=== PATIENT | male | born 1950 | race Caucasian/White ===

== ENCOUNTER → 2019-01-31 12:34 | Outpatient (CLI) | payer MEDICARE, OTHER, SELFPAY ==
--- NOTE | 2019-01-31 | DI.MRI.S_ITS ---
PROCEDURE: MR SHOULDER RT WO/W CON INDICATIONS: Pain in right shoulder TECHNIQUE: Noncontrast oblique coronal T1 spin echo and T2 fast spin echo with fat saturation, oblique sagittal T1 spin echo and T2 fast spin echo with fat saturation, axial T1 spin echo and T2 fast spin echo with fat saturation through the shoulder. Post-contrast oblique coronal, oblique sagittal, and axial T1 spin echo with fat saturation through the shoulder. COMPARISON: None. FINDINGS: Image quality: Excellent. Rotator cuff: Supraspinatus tendinopathy and thickening is present, with interstitial signal changes extending to the musculotendinous junction. There is low-grade bursal surface fraying, as well as partial thickness articular sided tear involving the critical zone and footprint. No full-thickness tear seen. The infraspinatus and teres minor appear intact. Subscapularis tendon appears mildly thickened in keeping with low-grade tendinopathy otherwise intact. No atrophy of the rotator cuff musculature. Bones and bursae: No suspicious bone marrow enhancement. No bone marrow contusions or fractures. There is glenohumeral joint degeneration, mild to moderate. Moderate hypertrophic acromioclavicular joint degeneration. The acromion demonstrates conventional anatomy, without an os acromiale. Mild to moderate subacromial/subdeltoid bursal fluid is seen.. Capsule and soft tissues: No abnormal enhancement is seen. Circumferential ill-defined extensive tear of the labrum which is likely chronic/degenerative. There is associated chronic osseous degenerative changes in the adjacent glenoid with circumferential appearance. The posterior subluxation of the humeral head relative to the glenoid. Possible small chronic-appearing Hill-Sachs fracture deformity Coracohumeral ligament appears mildly thickened otherwise intact. There is partial obliteration of subcoracoid fat. The biceps tendon appears abnormal in internal signal suggesting tendinopathy although grossly intact without definite medial subluxation. IMPRESSION: Supraspinatus tendinopathy and thickening, with low-grade bursal surface fraying and partial-thickness articular sided tear. Mild/moderate subacromial subdeltoid bursitis. Subscapularis tendinopathy. Glenohumeral and acromioclavicular joint degeneration as above with associated subchondral cystic change in the glenoid. Circumferential probably chronic/degenerative labral tear. Intra-articular long head biceps tendinopathy. Dictated by: Cholo Lizarrgaa M.D. on 02/01/2019 at 8:05 Approved by: Cholo Lizarraga M.D. on 02/01/2019 at 8:13
== END ==
PROVIDERS: Visit Provider Internal Medicine
DX: M25.511 Pain in right shoulder (principal); M75.111 Incomplete rotator cuff tear or rupture of right shoulder, not specified as traumatic; M75.51 Bursitis of right shoulder; M19.011 Primary osteoarthritis, right shoulder; S43.491A Other sprain of right shoulder joint, initial encounter
CPT/HCPCS: 73223; A9579

== ENCOUNTER 2020-04-28 18:54 | Emergency (ER) | payer MEDICARE, OTHER, SELFPAY ==
[2020-04-28] VITALS (16 sets, daily range): BP systolic 152–182; BP diastolic 66–87; PULSE 63–76; RESP 16–24; TEMP 37.3; O2SAT 93–100; BMI 33.1
[2020-04-28 19:43] LABS: Add Manual Diff / Slide Review NO; Basophils Absolute Auto 0 /uL (0-100); Basophils Percent Auto 0.3 % (0-2); Eosinophils Absolute Auto 100 /uL (0-450); Eosinophils Percent Auto 1.1 % (2-4); Hematocrit 40.8 % (41-53); Hemoglobin 13.9 g/dL (13.5-17.5); Lymphocytes Absolute Auto 1500 /uL (1100-4500); Mean Corpuscular HGB Conc 34.1 % (30-36); Mean Corpuscular Hemoglobin 32.3 PG (26-34); Mean Corpuscular Volume 94.8 fL (80-100); Monocytes Absolute Auto 1400 /uL (0-900); Neutrophils Absolute Auto 6000 /uL (1500-7000); Neutrophils Percent Auto 66.6 % (50-75); Platelet Count 225 X10^3/uL (150-400)
[2020-04-28 19:54] LABS: Creatine Kinase 62 U/L (55-170)
[2020-04-28 20:07] LABS: Troponin I < 0.012 ng/mL (0.01-0.034)
[2020-04-28 20:18] LABS: Alanine Aminotransferase 29 IU/L (<50); Albumin 4.1 g/dL (3.5-5.0); Albumin Globulin Ratio 1.5 (1.0-2.8); Alkaline Phosphatase 101 U/L (38-126); Aspartate Aminotransferase 36 IU/L (17-59); Bilirubin Total 0.9 mg/dL (0.2-1.3); Blood Urea Nitrogen 22 mg/dL (9-20); Calcium 9.5 mg/dL (8.4-10.2); Carbon Dioxide 24 mmol/L (22-32); Chloride 105 mmol/L (98-107); Estimated Glomerular Filt Rate 36.7 mL/min (>60); Globulin 2.8 g/dL (1.7-4.1); Glucose 84 mg/dL (80-110); HEMOLYSIS 22 (0-50); Lipase 83 U/L (23-300); Potassium 3.9 mmol/L (3.4-5.1); Sodium 136 mmol/L (137-145); Total Protein 6.9 g/dL (6.3-8.2)
--- NOTE | 2020-04-28 20:33 | DI.CT.S_ITS ---
PROCEDURE: CT KIDNEY URETER BLADDER (KUB) INDICATIONS: right back pain, vomiting, decreased kidney function TECHNIQUE: Noncontrast 5 mm thick sections acquired from the diaphragms to the symphysis. 5 mm thick coronal and sagittal reformats were then performed. For radiation dose reduction, the following was used: automated exposure control, adjustment of mA and/or kV according to patient size. COMPARISON: [facility], CT, ABDOMEN/PELVIS WITH CONTRAST, 07/12/2016, 9:50. FINDINGS: Image quality: Excellent. Lung bases: Lung bases are clear. Heart size is normal. Urinary system: Both kidneys are normal in size. No kidney stones. No left-sided hydronephrosis or perinephric fat stranding. Mild right-sided hydronephrosis and the right ureters appears slightly dilated throughout it is expected course to the bladder margin where a 1.5 mm calculus is seen (series 2, image 87).. Bladder wall thickness is normal; no calcified bladder stones. Other solid organs: Liver is normal in size. Gallbladder appears normal. Pancreas is normal in contours. Spleen is normal in size. No adrenal nodules. Peritoneum and bowel: Unenhanced bowel loops demonstrate normal wall thickness and caliber. No free fluid or air. Nodes and vessels: No retroperitoneal or mesenteric adenopathy by size criteria. Aorta and inferior vena cava are normal in caliber. Abdominal wall: There is a stable appearing ventral hernia in the periumbilical area, through a wide midline rectus sheath fascial defect, measuring up to 9.6 cm. No evidence of strangulation or incarceration of the small bowel loops extending into this area is found.. Pelvis: No free pelvic fluid. No inguinal hernias or adenopathy. Bones: No suspicious bony lesions. No vertebral body compression fractures. IMPRESSION: There is a 1.5 mm calculus within the far distal aspect of the right ureter, with mild adjacent retroperitoneal edema and mild associated right-sided hydronephrosis. A stone of this size will generally pass without urologic intervention into the bladder lumen. Incidental note is again made of a chronic midline periumbilical herniation, containing small bowel loops showing no evidence of incarceration or strangulation. The peritoneal body wall defect allowing herniation measures up to 9.6 cm open (series 2, image 62). Dictated by: Michele Lo M.D. on 04/28/2020 at 21:18 Approved by: Michele Lo M.D. on 04/28/2020 at 21:24
--- NOTE | 2020-04-28 20:40 | ED_ITS ---
HPI - Abdominal Pain <ELVIS Lema - Last Filed: 04/28/20 23:21> General Chief Complaint: Abdominal Pain Stated Complaint: vomiting, back pain, some SOB Time Seen by Provider: 04/28/20 19:07 Source: patient Mode of arrival: Family Vehicle Limitations: no limitations History of Present Illness HPI narrative: This is a 70-year-old male, a remote former smoker, with medical history of asthma, kidney stone, umbilical hernia repair presents to ED with chief complain of low abdominal pain that started on after eating garbage and had vomited twice. Patient described as having a knot in his lower abdomen. Then later on the pain had radiated to his back and reports has been having right flank/low back pain since then. Patient reports he had eaten lightly on Wednesday. He had 2 normal bowel movements yesterday without blood or diarrhea. Patient noticed temperature went up to 100 F earlier today. Patient reports chills. He denies urinary symptoms such as urgency, frequency, dysuria, or hematuria but occasional hesitancy. The patient also reports some chest tightness similar to asthma symptoms since yesterday morning at 7:00 a.m.. Patient reports chest tightness improves after he uses albuterol. However, noticed slightly increased in breathing difficulty and feels like not able to take full breaths with increase in activity. Patient denies chest pain, palpitation, sore throat, cough, headache, vision change, fainting episodes. Patient denies having abnormal EKGs or kidney function test in the past but reports used to have abnormal liver function test. He had gotten liver biopsy awhile ago which was normal. Patient denies recent travel, calf pain, contact with known Covid positive person. Patient reports he is actually feeling improved at this time as compared to and denies nausea and has a mild discomfort. Related Data Home Medications Medication Instructions Recorded Confirmed albuterol sulfate 04/28/20 Previous Rx's Medication Instructions Recorded tamsulosin [Flomax] 0.4 mg PO QDAY #7 cap 07/12/16 tamsulosin [Flomax] 0.4 mg PO DAILY #7 cap 04/28/20 Allergies Allergy/AdvReac Type Severity Reaction Status Date / Time No Known Drug Allergies Allergy Verified 04/28/20 19:10 Review of Systems <ELVIS Lema - Last Filed: 04/28/20 23:21> Review of Systems Narrative: General: See HPI HEENT: Denies sinus pain, ear pain, sore throat, difficulty swallowing, dizziness. Respiratory: Denies dyspnea, (+) mild short of breath with exertion, cough, whe ezing, hemoptysis, sputum. Cardiovascular: Denies chest pain, (+) chest tightness, palpitations, orthopnea, edema. Gastrointestinal: See HPI : Denies dysuria, frequency, incontinence, hematuria, urinary retention. Musculoskeletal: Denies weakness, joint pain or bony pain, (+) right low back p ain. Skin: Denies rash, skin lesions, or other. Neurologic: Denies weakness, headache, numbness, change in speech, confusion, seizures, incoordination. Psychiatric: No concerning psychosocial issues. 12-point review of systems is negative except for those stated above. Patient History <ELVIS Lema - Last Filed: 04/28/20 23:21> Medical History Abnormal liver function tests (Acute) Surgical History H/O umbilical hernia repair (Acute) Social History Smoking Status: Former smoker Smoking Status: Former smoker alcohol intake frequency: a few times a month Substance Use Type: does not use Exam <ELVIS Lema - Last Filed: 04/28/20 23:21> Narrative Exam Narrative: GEN: Alert, oriented x 3, well appearing and nourished, and in no acute distress. Head: Normal cephalic, atraumatic. No scalp or temporal tenderness, palpable mass or rash. EYES: Pupils are equal, round, and reactive to light and accommodation. Extraocular muscles are intact bilaterally. There is no subconjunctival hemorrhage, exudate and sclera non-icteric. ENT: Hearing grossly intact. Uses hearing aid. Nose without bleeding, purulent discharge or deviation. Facial sinuses nontender to palpate. Mucous membrane moist, no mucosal lesion. Throat without erythema, tonsillar hypertrophy or exudate. Uvula in midline, airway patent. Neck: Trachea in midline. No JVD, non-tender without lymphadenopathy. No masses or thyroid megaly. Supple, non-tender and no meningeal signs. CARDIAC: Normal regular rate and rhythm without murmurs, gallops, or rubs. No chest wall tenderness. No peripheral edema, cyanosis or pallor. Capillary refill is less than 2 seconds. RESPIRATORY: Lungs are clear to auscultate bilaterally. No cough, wheezes, rales, or rhonchi. No stridor, respiratory distress, increase work of breathing, or accessary muscle used. ABD: Abdomen soft, nontender and non-distended. No guarding or rebound t enderness to palpate. Bowel sounds are normal in all 4 quadrants. There is no palpable masses or organomegaly. EXT: Full painless ROM of all extremities with no loss of sensation, strength, effusion or edema. SKIN: Warm, dry, normal color for patient. No erythema, lesions or rash over visible areas. BACK: No deformity or crepitance. Right flank tenderness to palpate. No rashes noted. NEUROLOGICAL: Alert and oriented to place, time and person. Sensation and motor function intact bilaterally. No facial droops, dysphasia. PSYCHIATRIC: Good judgement and reason, without hallucinations, abnormal affect or abnormal behaviors during the examination. Patient is not suicidal. Initial Vital Signs Initial Vital Signs: Vital Signs Temperature 99.2 F 04/28/20 19:02 Pulse Rate 66 04/28/20 19:02 Respiratory Rate 20 04/28/20 19:02 Blood Pressure 178/87 H 04/28/20 19:02 Pulse Oximetry 100 04/28/20 19:02 <Jaiden Basilio DO - Last Filed: 04/29/20 06:40> Initial Vital Signs Initial Vital Signs: Vital Signs Temperature 99.2 F 04/28/20 19:02 Pulse Rate 66 04/28/20 19:02 Respiratory Rate 04/28/20 19:02 Blood Pressure 178/87 H 04/28/20 19:02 Pulse Oximetry 100 04/28/20 19:02 Scores <ELVIS Lema - Last Filed: 04/28/20 23:21> GCS Handy coma scale eye opening: Spontaneous Butterfield coma scale verbal response: Orientated Handy coma scale motor response: Obey commands Butterfield coma scale total score: 15 qSOFA Altered Mental Status (GCS <15): No Respiratory rate greater than/equal to 22: No Systolic blood pressure less than or equal to 100: No qSOFA Total: 0 0-1 Not High Risk 1-3 High risk Course <Jordan GonzalezCarolynHarleyELVIS odonnell - Last Filed: 04/28/20 23:21> Orders Ordered: Discontinued Medications Hydrocodone Bitart/Acetaminophen (Vicodin 5/325 Prepack) 1 bottle MISC SEEINSTR ONE Stop: 04/28/20 23:14 Last Admin: 04/28/20 23:23 Dose: 1 bottle Documented by: PHILIPPE Sodium Chloride (Normal Saline 0.9%) 500 mls @ 1,000 mls/hr IV BOLUS ONE Stop: 04/28/20 21:04 Last Infusion: 04/28/20 22:08 Dose: 0 mls/hr Documented by: Admin: 04/28/20 21:01 Dose: 1,000 mls/hr Documented by: PHILIPPE Ondansetron HCl (Zofran Odt Prepack) 1 bottle MISC SEEINSTR ONE Stop: 04/28/20 23:14 Last Admin: 04/28/20 23:23 Dose: 1 bottle Documented by: PHILIPPE Tamsulosin HCl (Flomax) 0.4 mg PO NOW ONE Stop: 04/28/20 23:14 Last Admin: 04/28/20 23:23 Dose: 0.4 mg Documented by: PHILIPPE Consultations Consultation #1: DR. Sarmeinto at (urolgoist) with CT finding and acute kidney injury. Dr. Sarmiento informed that the patient is not a surgical candidate. Patient may have other etiology for decreased kidney function including dehy dration, urinary retention and ect. Time: 21:50 Consultation #2: Consulted the hospitalist YAYA Sullivan for admission for observation but it was recommended with outpatient therapy with increase hydration and recheck lab test for kidney function test since patient is able to tolerate fluids, no signs of infection or significant urinary obstruction. Time: 23:00 Vital Signs Vital signs: Vital Signs - 8 hr 04/28/20 23:00 04/28/20 23:01 Pulse Rate 65 67 Respiratory Rate 24 18 Blood Pressure 158/72 H Pulse Oximetry 96 96 <Jaiden Basilio DO - Last Filed: 04/29/20 06:40> Orders Ordered: Discontinued Medications Hydrocodone Bitart/Acetaminophen (Vicodin 5/325 Prepack) 1 bottle MISC SEEINSTR ONE Stop: 04/28/20 23:14 Last Admin: 04/28/20 23:23 Dose: 1 bottle Documented by: PHILIPPE Sodium Chloride (Normal Saline 0.9%) 500 mls @ 1,000 mls/hr IV BOLUS ONE Stop: 04/28/20 21:04 Last Infusion: 04/28/20 22:08 Dose: 0 mls/hr Documented by: Admin: 04/28/20 21:01 Dose: 1,000 mls/hr Documented by: PHILIPPE Ondansetron HCl (Zofran Odt Prepack) 1 bottle MISC SEEINSTR ONE Stop: 04/28/20 23:14 Last Admin: 04/28/20 23:23 Dose: 1 bottle Documented by: PHILIPPE Tamsulosin HCl (Flomax) 0.4 mg PO NOW ONE Stop: 04/28/20 23:14 Last Admin: 04/28/20 23:23 Dose: 0.4 mg Documented by: PHILIPPE Vital Signs Vital signs: Vital Signs - 8 hr 04/28/20 23:00 04/28/20 23:01 Pulse Rate 65 67 Respiratory Rate 24 18 Blood Pressure 158/72 H Pulse Oximetry 96 96 MDM - Abdominal Pain <ELVIS Lema - Last Filed: 04/28/20 23:21> Differential Diagnosis Differential diagnosis: Likely abdominal pain, calculus of kidney, diverticulitis, small bowel obstruction and other (Renal obstruction, ) Medical Records Attestation: I reviewed the patient's medical records. Lab Data Attestation: I reviewed the patient's lab results. Result diagrams: 04/28/20 19:33 04/28/20 19:33 Labs: Lab Results 04/28/20 04/28/20 04/28/20 Range/Units 19:33 19:33 19:33 WBC 9.0 (4.5-11.0) X10^3/uL RBC 4.30 L (4.5-5.9) X10^6/uL Hgb 13.9 (13.5-17.5) g/dL Hct 40.8 L (41-53) % MCV 94.8 (80-100) fL MCH 32.3 (26-34) PG MCHC 34.1 (30-36) % RDW 14.0 (11.6-14.8) % Plt Count 225 (150-400) X10^3/uL Neut % (Auto) 66.6 (50-75) % Lymph % (Auto) 17.0 L (25-40) % [place]ander % (Auto) 15.0 H (3-14) % Eos % (Auto) 1.1 L (2-4) % Baso % (Auto) 0.3 (0-2) % Neut # (Auto) 6000 (7417-3038) /uL Lymph # (Auto) 1500 (0377-1360) /uL Lander # (Auto) 1400 H (0-900) /uL Eos # (Auto) 100 (0-450) /uL Baso # (Auto) 0 (0-100) /uL Sodium 136 L (137-145) mmol/L Potassium 3.9 (3.4-5.1) mmol/L Chloride 105 (98-107) mmol/L Carbon Dioxide 24 (22-32) mmol/L BUN 22 H (9-20) mg/dL Creatinine 1.83 H (0.66-1.25) mg/dL Estimated GFR 36.7 L (>60) mL/min BUN/Creatinine Ratio 12.0 (6-22) Glucose 84 (80-110) mg/dL Calcium 9.5 (8.4-10.2) mg/dL Total Bilirubin 0.9 (0.2-1.3) mg/dL AST 36 (17-59) IU/L ALT 29 (<50) IU/L Alkaline Phosphatase 101 (38-126) U/L Total Creatine Kinase 62 (55-170) U/L CK-MB (CK-2) TNP CK-MB (CK-2) Rel Index TNP Troponin I < 0.012 (0.01-0.034) ng/mL NT-Pro-B Natriuret Pep (<125) pg/mL Total Protein 6.9 (6.3-8.2) g/dL Albumin 4.1 (3.5-5.0) g/dL Globulin 2.8 (1.7-4.1) g/dL Albumin/Globulin Ratio 1.5 (1.0-2.8) Lipase 83 (23-300) U/L COVID-19 PCR (Negative) 04/28/20 04/28/20 Range/Units 19:33 22:30 WBC (4.5-11.0) X10^3/uL RBC (4.5-5.9) X10^6/uL Hgb (13.5-17.5) g/dL Hct (41-53) % MCV (80-100) fL MCH (26-34) PG MCHC (30-36) % RDW (11.6-14.8) % Plt Count (150-400) X10^3/uL Neut % (Auto) (50-75) % Lymph % (Auto) (25-40) % Lander % (Auto) (3-14) % Eos % (Auto) (2-4) % Baso % (Auto) (0-2) % Neut # (Auto) (6034-8827) /uL Lymph # (Auto) (6683-8826) /uL Lander # (Auto) (0-900) /uL Eos # (Auto) (0-450) /uL Baso # (Auto) (0-100) /uL Sodium (137-145) mmol/L Potassium (3.4-5.1) mmol/L Chloride (98-107) mmol/L Carbon Dioxide (22-32) mmol/L BUN (9-20) mg/dL Creatinine (0.66-1.25) mg/dL Estimated GFR (>60) mL/min BUN/Creatinine Ratio (6-22) Glucose (80-110) mg/dL Calcium (8.4-10.2) mg/dL Total Bilirubin (0.2-1.3) mg/dL AST (17-59) IU/L ALT (<50) IU/L Alkaline Phosphatase (38-126) U/L Total Creatine Kinase (55-170) U/L CK-MB (CK-2) CK-MB (CK-2) Rel Index Troponin I (0.01-0.034) ng/mL NT-Pro-B Natriuret Pep 234 H (<125) pg/mL Total Protein (6.3-8.2) g/dL Albumin (3.5-5.0) g/dL Globulin (1.7-4.1) g/dL Albumin/Globulin Ratio (1.0-2.8) Lipase (23-300) U/L COVID-19 PCR Negative (Negative) Point of care testing: Urine Dip Bedside Urine Glucose Negative Bedside Urine Bilirubin - Negative Bedside Urine Ketone - Negative Urine Specific [place] 1.020 Bedside Urine Occult Blood - Negative Bedside Urine pH 6.0 Bedside Urine Protein - Negative Bedside Urine Urobilinogen +/- 1mg Bedside Urine Nitrite - Negative Bedside Urine Leukocytes - Negative Esterase Imaging Data Chest x-ray: Radiologist's Impression: Bala Mccurdy Markjayme 70 M [address] [address] XRay Report Signed Patient: Bala MccurdyMR#: [id number] : 1950cct:[id number] Age/Sex: 70 / MDate of Service: 04/28/20 Loc: ED Accession Number: [id number] Procedure: XR chest 1V Ordering Provider: Jordan Mccollum PROCEDURE: XR CHEST 1V INDICATIONS: chest tightness TECHNIQUE: One view of the chest was acquired. COMPARISON: None. FINDINGS: Surgical changes and devices: None. Lungs and pleura: Lungs are difficult to accurately assess due to reduced inspiratory volume. No definite pneumonia found. No sign of cardiomegaly or CHF.. No pleural effusions or pneumothorax. Mediastinum: Mediastinal contours appear normal. Heart size is normal. Bones and chest wall: No suspicious bony lesions. Overlying soft tissues a ppear unremarkable. IMPRESSION: Reduced inspiratory volume, no acute disease. Dictated by: Michele Lo M.D. on 04/28/2020 at 21:30 Approved by: Michele Lo M.D. on 04/28/2020 at 21:30 CT-KUB: Radiologist's Impression: [address] [address] [address] Scan Report Signed Patient: Bala Mccurdy#: [id number] : 9Acct:[id number] Age/Sex: 70 / MDate of Service: 04/28/20 Loc: ED Accession Number: [id number] Procedure: CT kidney ureter bladder (KUB) Ordering Provider: Jordan Mccollum PROCEDURE: CT KIDNEY URETER BLADDER (KUB) INDICATIONS: right back pain, vomiting, decreased kidney function TECHNIQUE: Noncontrast 5 mm thick sections acquired from the diaphragms to the symphysis. 5 mm thick coronal and sagittal reformats were then performed. For radiation dose reduction, the following was used: automated exposure control, adjustment of mA and/or kV according to patient size. COMPARISON: [facility], CT, ABDOMEN/PELVIS WITH CONTRAST, 07/12/2016, 9:50. FINDINGS: Image quality: Excellent. Lung bases: Lung bases are clear. Heart size is normal. Urinary system: Both kidneys are normal in size. No kidney stones. No left- sided hydronephrosis or perinephric fat stranding. Mild right-sided hydronephrosis and the right ureters appears slightly dilated throughout it is expected course to the bladder margin where a 1.5 mm calculus is seen (series 2, image 87).. Bladder wall thickness is normal; no calcified bladder stones. Other solid organs: Liver is normal in size. Gallbladder appears normal. Pancreas is normal in contours. Spleen is normal in size. No adrenal nodules. Peritoneum and bowel: Unenhanced bowel loops demonstrate normal wall thickness and caliber. No free fluid or air. Nodes and vessels: No retroperitoneal or mesenteric adenopathy by size criteria. Aorta and inferior vena cava are normal in caliber. Abdominal wall: There is a stable appearing ventral hernia in the periumbilical area, through a wide midline rectus sheath fascial defect, measuring up to 9.6 cm. No evidence of strangulation or incarceration of the small bowel loops extending into this area is found.. Pelvis: No free pelvic fluid. No inguinal hernias or adenopathy. Bones: No suspicious bony lesions. No vertebral body compression fractures. IMPRESSION: There is a 1.5 mm calculus within the far distal aspect of the right ureter, with mild adjacent retroperitoneal edema and mild associated right-sided hydronephrosis. A stone of this size will generally pass without urologic intervention into the bladder lumen. Incidental note is again made of a chronic midline periumbilical herniation, containing small bowel loops showing no evidence of incarceration or strangulation. The peritoneal body wall defect allowing herniation measures up to 9.6 cm open (series 2, image 62). Dictated by: Michele Lo M.D. on 04/28/2020 at 21:18 Approved by: Michele Lo M.D. on 04/28/2020 at 21:24 ECG Data Attestation: I personally reviewed and interpreted this ECG as follows: Prior ECG tracings: not available for review Interpretation: Sinus rhythm with sinus arrhythmia rate at 67. Right bundle-branch block. AR initerval 179, QRS duration 153, QT/QTC 410/426. NO acute ST elevateion MDM Narrative Medical decision making narrative: This is a 70 year male who presents to ED with abdominal pain with nausea and vomiting times twice which started on . Patient reports pain had radiated to his back and has been remaining in right flank since 3 days ago. Patient had T-max of 100? today with some chills. He also reports some chest tightness since yesterday morning which improved with using albuterol but has slightly increased short of breath with exertion. Patient denies history of abnormal EKG in the past but we do not have prior EKGs in our EHR. Today's EKG shows sinus rhythm with sinus arrhythmia with right bundle branch block rate at [address] changes. pro BNP is 234. Chest xray of cardiomegaly or other acute findings. Cardiac enzymes were negative. CBC shows no acute findings or elevated neutrophils. Mildly decreased sodium level of 136 today. Elevated BUN of 2 with decreased creatinine of 1.83 an estimated GFR of 36.7. Patient denies history of decreased kidney function. We have last chemistry test in June 2016 which shows normal BUN (16) , creatinine (1.2). CT-KUB shows 1.5 mm stone was seen within the far distal aspect of right ureter with mild as send retroperitoneal edema and mild associated right-sided hydronephrosis. Also incidental finding of chronic midline periumbilical herniation without S evidence of incarceration or strangulation. Dr. Sarmiento ( Urolgoist) has been consulted and was informed that patient is not surgical candidate with this size of stone. Patient should be able to p assed stone without difficulty. However, patient's kidney function test has decreased for the size of stone patient is showing per CT test. Either patient might of had passed larger size stone in the past or patient has chronic urinary tension or other etiologies. The patient reports occasional urinary hesitancy but is able to void without difficulty when he waits while standing position. Patient does not see urologist specialist at this time. Bladder scanner was done and show about 270 ml of urine. The patient reports sensation of bladder fullness and was able to void about to 275 mL of clear yellow urine immediately after. It does not appears to be patient has urinary retention this time. Discussed with hospitalist CABIN SUPERVISOR Nate for observation admission for monitoring kidney function test with gentle IV hydration but it was recommended outpatient therapy since patient is able to tolerate fluids, there is no signs of infection big obstruction. I also spoke with the patient [facility] provider CABIN SUPERVISOR Leatha [facility] at [facility] with the findings over the phone and I was informed that she will follow-up with repeat kidney function test and new abnormal EKG finding of right bundle-branch block as outpatient. Patient was medicated with Flomax before leaving ED and with 7 day course of remaining prescription. Patient provided with prepack of [place] and Zofran as needed use for severe pain or nausea and vomiting. Patient advised to hydrate adequately to help with passing ureter stone. Return precautions were discussed with the patient and patient and spouse verbalized understanding and in agreement with treatment plan. <Jaiden Basilio, DO - Last Filed: 04/29/20 06:40> Lab Data Labs: Lab Results 04/28/20 04/28/20 04/28/20 Range/Units 19:33 19:33 19:33 WBC 9.0 (4.5-11.0) X10^3/uL RBC 4.30 L (4.5-5.9) X10^6/uL Hgb 13.9 (13.5-17.5) g/dL Hct 40.8 L (41-53) % MCV 94.8 (80-100) fL MCH 32.3 (26-34) PG MCHC 34.1 (30-36) % RDW 14.0 (11.6-14.8) % Plt Count 225 (150-400) X10^3/uL Neut % (Auto) 66.6 (50-75) % Lymph % (Auto) 17.0 L (25-40) % Lander % (Auto) 15.0 H (3-14) % Eos % (Auto) 1.1 L (2-4) % Baso % (Auto) 0.3 (0-2) % Neut # (Auto) 6000 (7119-9446) /uL Lymph # (Auto) 1500 (9943-2621) /uL Lander # (Auto) 1400 H (0-900) /uL Eos # (Auto) 100 (0-450) /uL Baso # (Auto) 0 (0-100) /uL Sodium 136 L (137-145) mmol/L Potassium 3.9 (3.4-5.1) mmol/L Chloride 105 (98-107) mmol/L Carbon Dioxide 24 (22-32) mmol/L BUN 22 H (9-20) mg/dL Creatinine 1.83 H (0.66-1.25) mg/dL Estimated GFR 36.7 L (>60) mL/min BUN/Creatinine Ratio 12.0 (6-22) Glucose 84 (80-110) mg/dL Calcium 9.5 (8.4-10.2) mg/dL Total Bilirubin 0.9 (0.2-1.3) mg/dL AST 36 (17-59) IU/L ALT 29 (<50) IU/L Alkaline Phosphatase 101 (38-126) U/L Total Creatine Kinase 62 (55-170) U/L CK-MB (CK-2) TNP CK-MB (CK-2) Rel Index TNP Troponin I < 0.012 (0.01-0.034) ng/mL NT-Pro-B Natriuret Pep (<125) pg/mL Total Protein 6.9 (6.3-8.2) g/dL Albumin 4.1 (3.5-5.0) g/dL Globulin 2.8 (1.7-4.1) g/dL Albumin/Globulin Ratio 1.5 (1.0-2.8) Lipase 83 (23-300) U/L COVID-19 PCR (Negative) 04/28/20 04/28/20 Range/Units 19:33 22:30 WBC (4.5-11.0) X10^3/uL RBC (4.5-5.9) X10^6/uL Hgb (13.5-17.5) g/dL Hct (41-53) % MCV (80-100) fL MCH (26-34) PG MCHC (30-36) % RDW (11.6-14.8) % Plt Count (150-400) X10^3/uL Neut % (Auto) (50-75) % Lymph % (Auto) (25-40) % Lander % (Auto) (3-14) % Eos % (Auto) (2-4) % Baso % (Auto) (0-2) % Neut # (Auto) (8691-0987) /uL Lymph # (Auto) (8017-5769) /uL Lander # (Auto) (0-900) /uL Eos # (Auto) (0-450) /uL Baso # (Auto) (0-100) /uL Sodium (137-145) mmol/L Potassium (3.4-5.1) mmol/L Chloride (98-107) mmol/L Carbon Dioxide (22-32) mmol/L BUN (9-20) mg/dL Creatinine (0.66-1.25) mg/dL Estimated GFR (>60) mL/min BUN/Creatinine Ratio (6-22) Glucose (80-110) mg/dL Calcium (8.4-10.2) mg/dL Total Bilirubin (0.2-1.3) mg/dL AST (17-59) IU/L ALT (<50) IU/L Alkaline Phosphatase (38-126) U/L Total Creatine Kinase (55-170) U/L CK-MB (CK-2) CK-MB (CK-2) Rel Index Troponin I (0.01-0.034) ng/mL NT-Pro-B Natriuret Pep 234 H (<125) pg/mL Total Protein (6.3-8.2) g/dL Albumin (3.5-5.0) g/dL Globulin (1.7-4.1) g/dL Albumin/Globulin Ratio (1.0-2.8) Lipase (23-300) U/L COVID-19 PCR Negative (Negative) Point of care testing: Urine Dip Bedside Urine Glucose Negative Bedside Urine Bilirubin - Negative Bedside Urine Ketone - Negative Urine Specific [place] 1.020 Bedside Urine Occult Blood - Negative Bedside Urine pH 6.0 Bedside Urine Protein - Negative Bedside Urine Urobilinogen +/- 1mg Bedside Urine Nitrite - Negative Bedside Urine Leukocytes - Negative Esterase Discharge Plan Departure Patient Disposition: Home Clinical Impression: Acute kidney injury, Calculi, ureter, Right bundle branch block Hydronephrosis Qualifiers: Hydronephrosis type: unspecified Qualified Code(s): N13.30 - Unspecified hydronephrosis Discharge Date/Time: 08/02/20 23:33 Instructions: DI for Hydronephrosis-Adult, DI for Acute Kidney Injury Activity Restrictions/Additional Instructions: You have been diagnosed with [ureteral stone and hydronephrosis with acute kidney injury. Also right bundle branch block in EKG. Cardiac enzymes were negative. Chest x-ray without acute findings.]. What to do: *Take your medications as directed. Please take Flomax at night to help with passing stone. Please take provided [place] as needed for severe pain. You can also use provided Zofran as needed for nausea or vomiting. [place] can cause drowsiness so please take precaution such as not driving, drinking alcohol, or operating heavy equipments. Also he can cause constipation so please take precautions. Please increase hydration. Flomax has been transmitted to [facility]. *Follow up with your primary care provider in 2-3 days, call for an appointment. Let them know you were seen in the ED and that we asked you to be seen in follow up. Please follow-up with repeat kidney function test and abnormal EKG of right bundle-branch block. *Return to ED if you have any new, worsening, or concerning symptoms, such as [fever, urinary retention, chest pain, breathing difficulty, unable to tolerate fluids or any acute concerns]. Prescriptions: New tamsulosin [Flomax] 0.4 mg capsule 0.4 mg PO DAILY Qty: 7 RF: 0 No Action tamsulosin [Flomax] 0.4 MG capsule,extended release 24hr 0.4 mg PO QDAY Qty: 7 RF: 0 albuterol sulfate RF: 0 Referrals: Reinier Aguirre MD [Physician] - <Jaiden Basilio DO - Last Filed: 04/29/20 06:40> [place] [facility] I was immediately available in the department for consultation. This documentation has been reviewed and I agree with assessment and plan. Supervised by Jaiden Basilio DO
[2020-04-28] MEDS: SODIUM CHLORIDE 0.9% 500 ML 1000 ML IV (21:01)
--- NOTE | 2020-04-28 21:06 | DI.RAD.S_ITS ---
PROCEDURE: XR CHEST 1V INDICATIONS: chest tightness TECHNIQUE: One view of the chest was acquired. COMPARISON: None. FINDINGS: Surgical changes and devices: None. Lungs and pleura: Lungs are difficult to accurately assess due to reduced inspiratory volume. No definite pneumonia found. No sign of cardiomegaly or CHF.. No pleural effusions or pneumothorax. Mediastinum: Mediastinal contours appear normal. Heart size is normal. Bones and chest wall: No suspicious bony lesions. Overlying soft tissues appear unremarkable. IMPRESSION: Reduced inspiratory volume, no acute disease. Dictated by: Michele Lo M.D. on 04/28/2020 at 21:30 Approved by: Michele Lo M.D. on 04/28/2020 at 21:30
[2020-04-28 21:14] LABS: NT-proBNP (BNP-Adult 18+) 234 pg/mL (<125)
[2020-04-28 23:14] LABS: COVID19 -Nasal RAPID Negative (Negative)
[2020-04-28] MEDS: TAMSULOSIN 0.4 MG CAPSULE PO (23:23)
[2020-04-28] MEDS: HYDROCODONE/ACET 5/325 PREPACK 1 BOTTLE MISC (23:23)
[2020-04-28] MEDS: ONDANSETRON 4 MG ODT PREPACK 1 BOTTLE MISC (23:23)
== END 2020-04-28 23:33 | disposition home or self-care (01) ==
PROVIDERS: Emergency Provider Nurse Practitioner Family
DX: N17.9 Acute kidney failure, unspecified (principal); N20.0 Calculus of kidney; N13.30 Unspecified hydronephrosis
CPT/HCPCS: 36415; 51798; 71045; 74176; 80053; 81003; 82550; 83690; 83880; 84484; 85025; 87635; 93005; 96360; 99285

== ENCOUNTER → 2020-07-29 13:02 | Outpatient (CLI) | payer OTHER, SELFPAY ==
--- NOTE | 2020-07-29 13:04 | DI.CT.S_ITS ---
PROCEDURE: CT KIDNEY URETER BLADDER (KUB) INDICATIONS: Calculus of kidney TECHNIQUE: Noncontrast 5 mm thick sections acquired from the diaphragms to the symphysis. 5 mm thick coronal and sagittal reformats were then performed. For radiation dose reduction, the following was used: automated exposure control, adjustment of mA and/or kV according to patient size. COMPARISON: [facility], CT, CT KIDNEY URETER BLADDER (KUB), 04/28/2020, 20:46. FINDINGS: Image quality: Excellent. Lung bases: Lung bases are clear. Heart size is normal. Urinary system: Both kidneys are normal in size. No kidney stones. No hydronephrosis or perinephric fat stranding. Both ureters appear non-dilated throughout their expected courses. Bladder wall thickness is normal; no calcified bladder stones. Other solid organs: Liver is normal in size. Gallbladder appears normal . Pancreas is normal in contours. Spleen is normal in size. No adrenal nodules. Peritoneum and bowel: Unenhanced bowel loops demonstrate normal wall thickness and caliber. No free fluid or air. Nodes and vessels: No retroperitoneal or mesenteric adenopathy by size criteria. Aorta and inferior vena cava are normal in caliber. Abdominal wall: Previously identified abdomen/pelvis midline ventral hernia is stable over time. Pelvis: No free pelvic fluid. No inguinal hernias or adenopathy. Resolution of a far distal small right ureteral stone. Bones: No suspicious bony lesions. No vertebral body compression fractures. IMPRESSION: No hydronephrosis or nephrolithiasis found. Resolution of the far distal right ureteral stone present 04/28/20. Ventral hernia at the abdomen/pelvis junction again noted, without evidence of incarceration or strangulation of the small bowel loops involved. Dictated by: Michele Lo M.D. on 07/29/2020 at 14:39 Approved by: Michele Lo M.D. on 07/29/2020 at 14:42
== END ==
PROVIDERS: Referring Provider Urology; Visit Provider Urology
DX: N20.0 Calculus of kidney (principal); K43.9 Ventral hernia without obstruction or gangrene
CPT/HCPCS: 74176

== ENCOUNTER → 2020-12-06 11:50 | Outpatient (CLI) | payer MEDICARE, OTHER, SELFPAY ==
[2020-12-06] MEDS: COVID-19 VACC, Ad26(JANSSEN)/PF 0.5 ML IM (11:54)
== END ==
PROVIDERS: Visit Provider Internal Medicine
DX: Z23 Encounter for immunization (principal)
CPT/HCPCS: 0031A; 91303

== ENCOUNTER → 2021-04-14 14:09 | Outpatient (CLI) | payer OTHER, MEDICARE, SELFPAY ==
--- NOTE | 2021-04-14 | DI.RAD.S_ITS ---
PROCEDURE: XR FOOT LT MIN 3V INDICATIONS: Pain in unspecified foot TECHNIQUE: 3 views of the foot were acquired. COMPARISON: None. FINDINGS: Bones: No fractures or dislocations. No suspicious bony lesions. Mild hallux valgus metatarsus prima varus alignment and medial bunion. Mild diffuse interphalangeal joint space narrowing. Prominent plantar sac. Soft tissues: No tibiotalar joint effusion. Achilles tendon appears normal. IMPRESSION: 1. Mild hallux valgus alignment and medial bunion. 2. Diffuse interphalangeal joint degeneration. 3. Mild calcaneal enthesopathy. Dictated by: Truman Russell [facility] Interpreted: Michele Lo MD on 04/14/2021 at 15:11 Transcribed by: GEORGES on 04/14/2021 at 15:12 Approved by: Michele Lo M.D. on 04/14/2021 at 17:17
--- NOTE | 2021-04-14 | DI.RAD.S_ITS ---
PROCEDURE: XR FOOT RT MIN 3V INDICATIONS: Pain in unspecified foot TECHNIQUE: 3 views of the foot were acquired. COMPARISON: None. FINDINGS: Bones: No fractures or dislocations. No suspicious bony lesions. Severe 1st MTP and diffuse interphalangeal joint space narrowing with periarticular osteophyte formation. Small retrocalcaneal and moderate plantar calcaneal enthesophyte. Soft tissues: No tibiotalar joint effusion. Achilles tendon appears normal. IMPRESSION: 1. Severe 1st MTP and diffuse interphalangeal joint degeneration. 2. Calcaneal enthesopathy. Dictated by: Truman Russell [facility] Interpreted: Michele Lo MD on 04/14/2021 at 15:15 Transcribed by: GEORGES on 04/14/2021 at 15:16 Approved by: Michele Lo M.D. on 04/14/2021 at 17:16
== END ==
DX: M79.671 Pain in right foot (principal); M79.672 Pain in left foot; M19.072 Primary osteoarthritis, left ankle and foot; M19.071 Primary osteoarthritis, right ankle and foot; M20.12 Hallux valgus (acquired), left foot; M21.612 Bunion of left foot; M77.32 Calcaneal spur, left foot; M77.31 Calcaneal spur, right foot
CPT/HCPCS: 73630

== ENCOUNTER 2021-09-26 10:36 | Emergency (ER) | payer OTHER, MEDICARE, SELFPAY ==
[2021-09-26] VITALS (9 sets, daily range): BP systolic 136–159; BP diastolic 68–78; PULSE 59–72; RESP 18–22; TEMP 37.2; O2SAT 96–99; BMI 34.7
--- NOTE | 2021-09-26 10:53 | DI.RAD.S_ITS ---
PROCEDURE: XR CHEST 1V INDICATIONS: chest pain cough TECHNIQUE: One view of the chest was acquired. COMPARISON: [facility], CR, XR CHEST 1V, 04/28/2020, 21:11. FINDINGS: Surgical changes and devices: None. Lungs and pleura: Lungs are clear. No pleural effusions or pneumothorax. Low lung volumes accentuate pulmonary interstitium and heart size. Mediastinum: Mediastinal contours appear normal. Heart size is normal. Bones and chest wall: Old healed right-sided rib fractures. IMPRESSION: No acute cardiopulmonary findings Approved by: Niraj Chi M.D. on 09/26/2021 at 11:31
--- NOTE | 2021-09-26 10:53 | ED_ITS ---
HPI - SOB/Dyspnea General Chief Complaint: Shortness of Breath/Dyspnea Stated Complaint: Chest discomfort, low oxygen levels Time Seen by Provider: 09/26/21 10:42 History of Present Illness HPI Narrative: Patient is a 71-year-old male history of childhood asthma, kidney stones, umbilical hernia repair presenting with 1 day of shortness of breath. States that feels like his childhood asthma his back it feels like he cannot take a deep breath. He actually had a difficult time sleeping last night. He denies shortness of breath with exertion. He uses albuterol inhaler at home which did not seem to help. He developed a fever this morning 100.9. He has a wrist oxygen monitor which showed that he had O2 of 82% so he came to the ED for further evaluation. He actually is 98% on room air speaking in full sentences. He is vaccinated with [employer]. Patient also just traveled back from [place]. Related Data Home Medications Medication Instructions Recorded Confirmed albuterol 90 mcg/actuation aerosol 90 mcg INHALATION Q6HR PRN 09/26/21 09/26/21 inhaler Allergies Allergy/AdvReac Type Severity Reaction Status Date / Time No Known Drug Allergies Allergy Verified 09/26/21 10:54 Review of Systems Review of Systems Narrative: GENERAL: Denies chills, fatigue, malaise, fever, sweats, travel HEENT: Denies sinus pain, ear pain, sore throat, difficulty swallowing, neck pain RESPIRATORY: See HPI CARDIOVASCULAR: See HPI GASTROINTESTINAL: Denies nausea, vomiting, abdominal pain, diarrhea, constipation, melena. : Denies dysuria, frequency, incontinence, hematuria, urinary retention, flank pain. MUSCULOSKELETAL: Denies weakness, joint pain, or bony pain SKIN: No rash, no erythema, no pruritus NEUROLOGIC: Denies weakness, dizziness, headache, numbness, change in speech, confusion PSYCHIATRIC: No concerning psychosocial issues. 12 point review of systems is negative except for those stated above and HPI Patient History Medical History (Updated 09/26/21 @ 13:11 by Laura Wilkerson DO) Abnormal liver function tests Surgical History H/O umbilical hernia repair Social History Smoking Status: Former smoker Smoking Status: Former smoker alcohol intake frequency: a few times a month Substance Use Type: does not use Exam Initial Vital Signs Initial Vital Signs: Vital Signs Pulse Rate 72 09/26/21 10:44 Respiratory Rate 18 09/26/21 10:44 Pulse Oximetry 97 09/26/21 10:44 GENERAL: Alert well-appearing 71-year-old male in no acute distress. HEENT: Head atraumatic,EOMI, pupils reactive, face symmetric, moist mucous membranes CARDIOVASCULAR: Regular rate and rhythm without murmurs, rubs or gallops. RESPIRATORY: Breath sounds equal bilaterally, no wheezes rales or rhonchi. Space in full sentences without difficulty ABDOMEN: Soft, nontender. Normoactive bowel sounds all 4 quadrants. No guarding or rebound. EXTREMITIES: Normal range of motion, no clubbing or edema. Neurovascularly intact NEUROLOGICAL: Alert and oriented x4.Normal gait and speech. SKIN: Warm, dry, no laceration, no petechiae, no rashes or lesions. Course Orders Ordered: ED Orders 09/26/21 10:45 COVID19 -Nasal swab/Pre-Proc Stat 09/26/21 10:53 XR chest 1V Stat EKG-12 Lead Stat 09/26/21 12:28 Complete Blood Count AUTO DIFF Stat Comprehensive Metabolic Panel Stat D Dimer Stat Lipase Stat NT-proBNP (BNP-Adult 18+) Stat Procalcitonin Stat Troponin & CK Cardiac Panel Stat 09/26/21 13:17 CT angio chest PE protocol Stat Vital Signs Vital signs: Vital Signs - 8 hr 09/26/21 10:44 09/26/21 10:45 09/26/21 11:00 Temperature 99.0 F Pulse Rate 72 72 67 Respiratory Rate 18 18 18 Blood Pressure 159/75 H 136/70 Pulse Oximetry 97 97 97 09/26/21 11:30 09/26/21 12:00 09/26/21 12:30 Temperature Pulse Rate 62 61 61 Respiratory Rate 21 18 20 Blood Pressure 137/72 140/73 149/78 H Pulse Oximetry 98 96 99 09/26/21 13:00 09/26/21 13:30 09/26/21 14:00 Temperature Pulse Rate 61 59 L 62 Respiratory Rate 22 19 21 Blood Pressure 148/72 H 137/68 143/70 H Pulse Oximetry 97 96 99 MDM - SOB/Dyspnea Lab Data Result diagrams: 09/26/21 12:28 09/26/21 12:28 Labs: Lab Results 09/26/21 09/26/21 09/26/21 Range/Units 10:45 12:28 12:28 WBC 3.9 L (4.5-11.0) X10^3/uL RBC 3.80 L (4.5-5.9) X10^6/uL Hgb 12.8 L (13.5-17.5) g/dL Hct 37.3 L (41-53) % MCV 98.3 (80-100) fL MCH 33.8 (26-34) PG MCHC 34.4 (30-36) % RDW 15.0 H (11.6-14.8) % Plt Count 221 (150-400) X10^3/uL Neut % (Auto) 46.2 L (50-75) % Lymph % (Auto) 22.2 L (25-40) % [place] % (Auto) 29.9 H (3-14) % Eos % (Auto) 0.8 L (2-4) % Baso % (Auto) 0.9 (0-2) % Neut # (Auto) 1800 (1246-6083) /uL Lymph # (Auto) 900 L (7225-2658) /uL [place] # (Auto) 1200 H (0-900) /uL Eos # (Auto) 0 (0-450) /uL Baso # (Auto) 0 (0-100) /uL D-Dimer 486 H (<230) ng/mL Sodium (137-145) mmol/L Potassium (3.4-5.1) mmol/L Chloride (98-107) mmol/L Carbon Dioxide (22-32) mmol/L BUN (9-20) mg/dL Creatinine (0.66-1.25) mg/dL Estimated GFR (>60) mL/min BUN/Creatinine Ratio (6-22) Glucose (80-110) mg/dL Calcium (8.4-10.2) mg/dL Total Bilirubin (0.2-1.3) mg/dL AST (17-59) IU/L ALT (<50) IU/L Alkaline Phosphatase (38-126) U/L Total Creatine Kinase (55-170) U/L CK-MB (CK-2) (<2.37) ng/mL CK-MB (CK-2) Rel Index (1.5-5.0) % Troponin I (0.01-0.034) ng/mL NT-Pro-B Natriuret Pep (<125) pg/mL Total Protein (6.3-8.2) g/dL Albumin (3.5-5.0) g/dL Globulin (1.7-4.1) g/dL Albumin/Globulin Ratio (1.0-2.8) Lipase (23-300) U/L Procalcitonin (<0.5) ng/mL SARS-CoV-2 (PCR) Positive H (Negative) 09/26/21 Range/Units 12:28 WBC (4.5-11.0) X10^3/uL RBC (4.5-5.9) X10^6/uL Hgb (13.5-17.5) g/dL Hct (41-53) % MCV (80-100) fL MCH (26-34) PG MCHC (30-36) % RDW (11.6-14.8) % Plt Count (150-400) X10^3/uL Neut % (Auto) (50-75) % Lymph % (Auto) (25-40) % [place] % (Auto) (3-14) % Eos % (Auto) (2-4) % Baso % (Auto) (0-2) % Neut # (Auto) (9472-4895) /uL Lymph # (Auto) (4569-2707) /uL [place] # (Auto) (0-900) /uL Eos # (Auto) (0-450) /uL Baso # (Auto) (0-100) /uL D-Dimer (<230) ng/mL Sodium 140 (137-145) mmol/L Potassium 4.2 (3.4-5.1) mmol/L Chloride 106 (98-107) mmol/L Carbon Dioxide 28 (22-32) mmol/L BUN 15 (9-20) mg/dL Creatinine 1.19 (0.66-1.25) mg/dL Estimated GFR > 60.0 (>60) mL/min BUN/Creatinine Ratio 12.6 (6-22) Glucose 87 (80-110) mg/dL Calcium 9.4 (8.4-10.2) mg/dL Total Bilirubin 0.5 (0.2-1.3) mg/dL AST 44 (17-59) IU/L ALT 33 (<50) IU/L Alkaline Phosphatase 102 (38-126) U/L Total Creatine Kinase 220 H (55-170) U/L CK-MB (CK-2) 0.39 (<2.37) ng/mL CK-MB (CK-2) Rel Index 0.2 L (1.5-5.0) % Troponin I < 0.012 (0.01-0.034) ng/mL NT-Pro-B Natriuret Pep 70 (<125) pg/mL Total Protein 7.3 (6.3-8.2) g/dL Albumin 4.2 (3.5-5.0) g/dL Globulin 3.1 (1.7-4.1) g/dL Albumin/Globulin Ratio 1.4 (1.0-2.8) Lipase 119 (23-300) U/L Procalcitonin 0.12 (<0.5) ng/mL SARS-CoV-2 (PCR) (Negative) Imaging Data Chest x-ray: Radiologist's Impression: PROCEDURE:? XR CHEST 1V ? INDICATIONS:? chest pain cough ? TECHNIQUE:? One view of the chest was acquired.? ? COMPARISON:? [facility], , XR CHEST 1V, 04/28/2020, 21:11. ? FINDINGS:? ? Surgical changes and devices:? None.? ? Lungs and pleura:? Lungs are clear.? No pleural effusions or pneumothorax.? Low lung volumes accentuate pulmonary interstitium and heart size. ? Mediastinum:? Mediastinal contours appear normal.? Heart size is normal.? ? Bones and chest wall:? Old healed right-sided rib fractures. ? IMPRESSION:? ? No acute cardiopulmonary findings ? ? ? Approved by: Niraj Chi M.D. on 09/26/2021 at 11:31? CT scan - chest: Radiologist's Impression: PROCEDURE:? CT ANGIO CHEST PE PROTOCOL ? INDICATIONS:? short of breath +covid ? TECHNIQUE:? After the administration of intravenous contrast, 2 mm thick sections acquired from the pulmonary apices to the posterior costophrenic angles.? For ra diation dose reduction, the following was used:? automated exposure control, adjustment of mA and/or kV according to patient size.? ? COMPARISON:? None. ? FINDINGS:? Image quality:? Excellent.? ? Pulmonary arteries:? Pulmonary arteries are normal in size, and demonstrate no intraluminal filling defects to suggest central pulmonary embolism.? ? Lungs and pleura:? Lungs are clear.? No pleural effusions or pneumothorax.? Central and peripheral airways are patent.? ? Mediastinum:? Heart size is normal, without pericardial effusion.? No mediastinal or hilar adenopathy.? Thoracic aorta is normal in caliber and enhancement.? Esophagus is normal in caliber, without hiatal hernia.? ? Bones and chest wall:? No suspicious bony lesions.? Ribs and thoracic spine appear intact throughout.? Thyroid gland unremarkable4.? No axillary or supraclavicular adenopathy.? ? Abdomen:? Visualized upper abdominal solid organs appear normal in the early arterial phase of enhancement.? ? IMPRESSION:? ? Unremarkable CT chest without evidence of pulmonary embolism, aortic dissection or aneurysm. ? ? ? Approved by: Niraj Chi M.D. on 09/26/2021 at 13:02? ECG Data Interpretation: Normal sinus rhythm rate 68 VT interval 192 QRS [address] changes right bundle branch block noted MDM Narrative Medical decision making narrative: Patient is found to be COVID positive. His oxygen level is within normal limits on room air no difficulty breathing. D-dimer is mildly elevated probably secondary to COVID help cover with recent travel did do CT angio which f ortunately did not show any pulmonary embolism. Discussed home care with patient. All questions have been answered. Discharge Plan Departure Patient Disposition: Home Clinical Impression: COVID-19 Instructions: DI for COVID-19 (Suspected or Confirmed ) Activity Restrictions/Additional Instructions: * if you have not yet been vaccinated is still recommended and encouraged that you do so once your infection has passed *Follow up with your primary provider in 2-3 days or call [phone] AT HOME: -Monitor oxygen with pulse oximeter. If less than 90% for more than 1 hour please return to emergency department -I recommend lying on stomach for side rather than back, it has been proven to increase oxygen levels -Wash hands frequently. -Stay isolated at home please follow the isolation instructions below. -Increase fluid intake. -you may take Tylenol as directed if needed for pain or fever EMERGENCY warning signs for COVID-19: - Difficulty breathing or shortness of breath, oxygen less than 90% - Persistent pain or pressure in the chest - New confusion or inability to arouse - Bluish lips or face CDC Guidelines for home isolation: - Stay away from others - Limit contact with pets and animals: If you must care for a pet, wash your hands before and after interacting with them - Wear a mask while in public all places - Cover your mouth and nose with a tissue when you cough or sneeze. Dispose of tissues in a lined trash can and wash your hands immediately with soap and water for at least 20 seconds. If soap and water are not available, clean hands with alcohol-based hand sales and marketing engineer that contains at least 60% alcohol. - Clean your hands often with soap and water for at least 20 seconds - Avoid touching your eyes, nose and mouth with unwashed hands - Do not share dishes, drinking glasses, cups, eating utensils, towels, or bedding with other people in your home. After using these items, wash them thoroughly with soap and water or put in the instructor psychiatric aide. - Clean high-touch surfaces in your isolation area (?sick room? and bathroom) every day; let a caregiver clean and disinfect high-touch surfaces in other areas of the home. Clean the area or item with soap and water or another detergent if it is dirty. Then, use a household disinfectant. Prescriptions: No Action albuterol 90 mcg/actuation Aerosol 90 mcg INHALATION Q6HR PRN (Reason: Wheezing) 0RF
[2021-09-26 11:22] LABS: COVID19 -Nasal RAPID POSITIVE (Negative)
[2021-09-26 12:48] LABS: Alanine Aminotransferase 33 IU/L (<50); Albumin 4.2 g/dL (3.5-5.0); Albumin Globulin Ratio 1.4 (1.0-2.8); Alkaline Phosphatase 102 U/L (38-126); Aspartate Aminotransferase 44 IU/L (17-59); BUN Creatinine Ratio 12.6 (6-22); Bilirubin Total 0.5 mg/dL (0.2-1.3); Blood Urea Nitrogen 15 mg/dL (9-20); Calcium 9.4 mg/dL (8.4-10.2); Carbon Dioxide 28 mmol/L (22-32); Chloride 106 mmol/L (98-107); Creatine Kinase 220 U/L (55-170); D Dimer 486 ng/mL (<230); Estimated Glomerular Filt Rate > 60.0 mL/min (>60); Globulin 3.1 g/dL (1.7-4.1); Glucose 87 mg/dL (80-110); HEMOLYSIS < 15 (0-50); Lipase 119 U/L (23-300); Potassium 4.2 mmol/L (3.4-5.1); Sodium 140 mmol/L (137-145); Total Protein 7.3 g/dL (6.3-8.2)
[2021-09-26 12:50] LABS: Add Manual Diff / Slide Review NO; Basophils Absolute Auto 0 /uL (0-100); Basophils Percent Auto 0.9 % (0-2); Eosinophils Absolute Auto 0 /uL (0-450); Eosinophils Percent Auto 0.8 % (2-4); Hematocrit 37.3 % (41-53); Hemoglobin 12.8 g/dL (13.5-17.5); Lymphocytes Absolute Auto 900 /uL (1100-4500); Lymphocytes Percent Auto 22.2 % (25-40); Mean Corpuscular HGB Conc 34.4 % (30-36); Mean Corpuscular Hemoglobin 33.8 PG (26-34); Mean Corpuscular Volume 98.3 fL (80-100); Monocytes Absolute Auto 1200 /uL (0-900); Monocytes Percent Auto 29.9 % (3-14); Neutrophils Absolute Auto 1800 /uL (1500-7000); Neutrophils Percent Auto 46.2 % (50-75); Platelet Count 221 X10^3/uL (150-400); White Blood Cell Count 3.9 X10^3/uL (4.5-11.0)
[2021-09-26 13:00] LABS: NT-proBNP (BNP-Adult 18+) 70 pg/mL (<125); Troponin I < 0.012 ng/mL (0.01-0.034)
[2021-09-26 13:03] LABS: CKMB % Relative Index 0.2 % (1.5-5.0); Creatine Kinase MB 0.39 ng/mL (<2.37)
[2021-09-26 13:05] LABS: Procalcitonin 0.12 ng/mL (<0.5)
--- NOTE | 2021-09-26 13:17 | DI.CT.S_ITS ---
PROCEDURE: CT ANGIO CHEST PE PROTOCOL INDICATIONS: short of breath +covid TECHNIQUE: After the administration of intravenous contrast, 2 mm thick sections acquired from the pulmonary apices to the posterior costophrenic angles. For radiation dose reduction, the following was used: automated exposure control, adjustment of mA and/or kV according to patient size. COMPARISON: None. FINDINGS: Image quality: Excellent. Pulmonary arteries: Pulmonary arteries are normal in size, and demonstrate no intraluminal filling defects to suggest central pulmonary embolism. Lungs and pleura: Lungs are clear. No pleural effusions or pneumothorax. Central and peripheral airways are patent. Mediastinum: Heart size is normal, without pericardial effusion. No mediastinal or hilar adenopathy. Thoracic aorta is normal in caliber and enhancement. Esophagus is normal in caliber, without hiatal hernia. Bones and chest wall: No suspicious bony lesions. Ribs and thoracic spine appear intact throughout. Thyroid gland unremarkable4. No axillary or supraclavicular adenopathy. Abdomen: Visualized upper abdominal solid organs appear normal in the early arterial phase of enhancement. IMPRESSION: Unremarkable CT chest without evidence of pulmonary embolism, aortic dissection or aneurysm. Approved by: Niraj Chi M.D. on 09/26/2021 at 13:02
== END 2021-09-26 14:35 | disposition home or self-care (01) ==
PROVIDERS: Emergency Provider Emergency Medicine
DX: U07.1 COVID-19 (principal); I45.10 Unspecified right bundle-branch block
CPT/HCPCS: 71045; 71275; 80053; 82550; 82553; 83690; 83880; 84145; 84484; 85025; 85379; 87635; 93005; 99284; C9803; Q9967

== ENCOUNTER → 2023-10-07 11:13 | Outpatient (CLI) | payer MEDICARE, OTHER, SELFPAY ==
--- NOTE | 2023-10-07 | DI.CT.S_ITS ---
PROCEDURE: CT HEAD/BRAIN WO CON INDICATIONS: Fall (on) (from) unspecified stairs and steps TECHNIQUE: Noncontrast 4.5 mm thick angled axial sections acquired from the foramen magnum to the vertex, with coronal and sagittal reformats. For radiation dose reduction, the following was used: automated exposure control, adjustment of mA and/or kV according to patient size. COMPARISON: None. FINDINGS: Image quality: Diagnostic. CSF spaces: Basal cisterns are patent. No extra-axial fluid collections. The ventricles are symmetric in size and shape. Brain: No intracranial bleeds or masses. There is cerebral volume loss for age, with resultant ventricular and sulcal prominence. There are periventricular and deep white matter chronic small vessel ischemic changes. There is intracranial internal carotid artery atherosclerosis. Dense calcification can be seen along the left aspect of the falx, as on series 2 image 26, which is within normal limits for age. Skull and face: Calvarium and visualized facial bones appear intact, without suspicious lesions. Sinuses: There is complete opacification of the maxillary sinuses on both sides. The maxillary sinuses are small in size. Moderate mucosal thickening can be seen within the ethmoid air cells. Minimal mucosal thickening is seen elsewhere within the paranasal sinuses. No abnormal fluid is seen within the mastoid air cells. IMPRESSION: No acute intracranial hemorrhage is seen. No acute intracranial process is seen. No displaced calvarial fracture can be seen. Paranasal sinus disease is seen, with complete opacification of the maxillary sinuses, with chronic remodeling change of the maxillary sinuses. Dictated by: Alan Russ M.D. on 10/07/2023 at 10:43 Approved by: Alan Russ M.D. on 10/07/2023 at 11:01
== END ==
PROVIDERS: PCP Student in an Organized Health Care Education/Training Program; Referring Provider Student in an Organized Health Care Education/Training Program; Visit Provider Student in an Organized Health Care Education/Training Program
DX: I65.29 Occlusion and stenosis of unspecified carotid artery (principal); J32.8 Other chronic sinusitis; R29.6 Repeated falls
CPT/HCPCS: 70450

== ENCOUNTER → 2024-06-11 15:03 | Outpatient (CLI) | payer MEDICARE, OTHER, SELFPAY | PROVIDERS: PCP Student in an Organized Health Care Education/Training Program; Visit Provider Physician Assistant Medical | DX: J02.9 Acute pharyngitis, unspecified (principal) | CPT/HCPCS: 87070 ==

== ENCOUNTER → 2024-07-24 09:03 | Outpatient (CLI) | payer OTHER, SELFPAY ==
--- NOTE | 2024-07-24 09:05 | DI.US.S_ITS ---
PROCEDURE: US THYROID INDICATIONS: PARAHYPERTHYROIDISM / EVAL FOR OSTEOPOROSIS TECHNIQUE: Real-time scanning was performed of the thyroid gland, with image documentation. COMPARISON: None. FINDINGS: Thyroid: Right lobe measures 4.4 x 1.8 x 1.5 cm. Left lobe measures 4.4 x 1.5 x 1.2 cm. Isthmus is 0.3 cm thick. Echotexture is homogeneous. There are no significant thyroid nodules. The parathyroid glands are not identified in the field of view. IMPRESSION: Nonvisualization of the parathyroid glands. If there is persistent concern for an underlying parathyroid adenoma, a technetium 99-m sestamibi SPECT CT would be recommended for evaluation. ACR TI-RADS definitions and recommendations: TI-RADS 1 (benign): 0 points. FNA not needed. TI-RADS 2 (not suspicious): 2 points. FNA not needed. TI-RADS 3 (mildly suspicious): 3 points. * FNA if 2.5 cm or larger, follow up if 1.5 cm or larger (at 1, 3, and 5 years). TI-RADS 4 (moderately suspicious): 4-6 points. * FNA if 1.5 cm or larger, follow up if 1 cm or larger (at 1, 2, 3, and 5 years). TI-RADS 5 (highly suspicious): 7 points or more. * FNA if 1 cm or larger, follow up if 0.5 cm or larger (every year for 5 years). Dictated by: Max Hawkins M.D. on 07/25/2024 at 10:07 Approved by: Max Hawkins M.D. on 07/25/2024 at 10:11
--- NOTE | 2024-07-24 09:06 | DI.RAD.S_ITS ---
PROCEDURE: XR DEXA AXIAL SKELETON INDICATIONS: PARAHYPERTHYROIDISM / EVAL FOR OSTEOPOROSIS COMPARISON: None. FINDINGS: Lumbar Spine: Bone mineral density 1.474 g/cm2, T score 3.9. Left Hip: Bone mineral density 1.132 g/cm2, T score 1.6. Left Femoral Neck: Bone mineral density 1.009 g/cm2, T score 1.4. Right Hip: Bone mineral density 1.051 g/cm2, T score 0.9. Right Femoral Neck: Bone mineral density 0.951 g/cm2, T score 0.9. Fracture Risk Calculation (when applicable): 10-year fracture risk of a major osteoporotic fracture 3.9 percent and of a hip fracture 0.5 percent. (T score greater or equal to -1.0 to: NORMAL) (T score from -1.1 to -2.4: OSTEOPENIA) (T score less than or equal to -2.5: OSTEOPOROSIS) IMPRESSION: No osteopenia. Bone mineral density at the lumbar spine is increased. Follow-up guidelines as follows: Osteoporosis: Consider a repeat DEXA and Vertebral Fracture Assessment (VFA) exam in 2 years or sooner if medically necessary, to reassess this patient's status. Osteopenia: Consider a repeat DEXA in 2-3 years to reassess this patient's status, or if there is a new clinical indication. Normal: Consider a repeat DEXA in 5 years or sooner, or if there is a new clinical indication. All treatment decisions require clinical judgment and consideration of individual patient factors, including patient preferences, comorbidities, previous drug use, risk factors not captured in the FRAX model (e.g., frailty, falls, vitamin D deficiency, increased bone turnover, interval significant decline in bone density ) and possible under- or over-estimation of fracture risk by FRAX. In addition, the NOF Guide recommends that FDA-approved medical therapies be considered in postmenopausal women and men age >= 50 years with a: * Hip or vertebral (clinical or morphometric) fracture * T-score of <=-2.5 at the spine or hip * Ten-year fracture probability by FRAX of >= 3% for hip fracture or >=20% for major osteoporotic fracture. People with diagnosed cases of osteoporosis or at high risk for fracture should have regular bone mineral density tests. For patients eligible for Medicare, routine testing is allowed once every 2 years. The testing frequency can be increased to one year for patients who have rapidly progressing disease, those who are receiving or discontinuing medical therapy to restore bone mass, or have additional risk factors. Dictated by: Gio Trevino M.D. on 07/24/2024 at 20:28 Approved by: Gio Trevino M.D. on 07/24/2024 at 20:31
== END ==
PROVIDERS: PCP Student in an Organized Health Care Education/Training Program; Referring Provider Internal Medicine Endocrinology, Diabetes & Metabolism; Visit Provider Internal Medicine Endocrinology, Diabetes & Metabolism
DX: E21.0 Primary hyperparathyroidism (principal)
CPT/HCPCS: 76536; 77080

== ENCOUNTER → 2024-12-18 14:02 | Outpatient (CLI) | payer MEDICARE, OTHER, SELFPAY ==
[2024-12-18 14:48] LABS: Add Manual Diff / Slide Review NO; Basophils Absolute Auto 0 /uL (0-100); Basophils Percent Auto 0.8 % (0-2); Eosinophils Absolute Auto 400 /uL (0-450); Eosinophils Percent Auto 7.1 % (2-4); Hematocrit 40.7 % (41-53); Hemoglobin 13.8 g/dL (13.5-17.5); Lymphocytes Absolute Auto 1200 /uL (1100-4500); Lymphocytes Percent Auto 21.5 % (25-40); Mean Corpuscular Hemoglobin 34.1 PG (26-34); Mean Corpuscular Volume 100.5 fL (80-100); Monocytes Absolute Auto 800 /uL (0-900); Monocytes Percent Auto 13.6 % (3-14); Neutrophils Absolute Auto 3300 /uL (1500-7000); Platelet Count 301 X10^3/uL (150-400); Red Blood Cell Count 4.05 X10^6/uL (4.5-5.9); Red Cell Distribution Width 14.2 % (11.6-14.8); White Blood Cell Count 5.8 X10^3/uL (4.5-11.0)
[2024-12-18 14:57] LABS: Hemoglobin A1C% w Est Avg Glu 5.2 % (4.0-6.0)
[2024-12-18 15:24] LABS: Alanine Aminotransferase 30 IU/L (<50); Albumin 4.3 g/dL (3.5-5.0); Albumin Globulin Ratio 1.5 (1.0-2.8); Alkaline Phosphatase 114 U/L (38-126); Aspartate Aminotransferase 40 IU/L (17-59); BUN Creatinine Ratio 19.7 (6-22); Bilirubin Total 0.6 mg/dL (0.2-1.3); Blood Urea Nitrogen 23 mg/dL (9-20); Calcium 10.8 mg/dL (8.4-10.2); Carbon Dioxide 27 mmol/L (22-32); Chloride 105 mmol/L (98-107); Cholesterol 207 mg/dL (140-199); Estimated Glomerular Filt Rate > 60 mL/min (>60); Globulin 2.8 g/dL (1.7-4.1); Glucose 80 mg/dL (80-110); HDL Cholesterol 35 mg/dL (40-60); HEMOLYSIS < 15 (0-50); LDL Cholesterol Calculated 140 mg/dL (<100); Potassium 4.3 mmol/L (3.4-5.1); Sodium 139 mmol/L (137-145); Total Protein 7.1 g/dL (6.3-8.2); Triglycerides 159 mg/dL (35-150)
[2024-12-18 15:25] LABS: Erythrocyte Sedimentation Rate 21 MM/HR (0-15)
[2024-12-20 03:10] LABS: CRP, High Sensitivity 5.45 mg/L (0.00-3.00)
[2024-12-20 12:39] LABS: PSA Free % 35.3 % (.); PSA, Total 1.7 ng/mL (0.0-4.0)
== END ==
PROVIDERS: PCP Student in an Organized Health Care Education/Training Program; Referring Provider Student in an Organized Health Care Education/Training Program; Visit Provider Student in an Organized Health Care Education/Training Program
DX: E83.52 Hypercalcemia (principal); E67.3 Hypervitaminosis D; I74.2 Embolism and thrombosis of arteries of the upper extremities; I74.3 Embolism and thrombosis of arteries of the lower extremities; Z87.891 Personal history of nicotine dependence; Z13.1 Encounter for screening for diabetes mellitus; Z13.220 Encounter for screening for lipoid disorders; Z13.6 Encounter for screening for cardiovascular disorders
CPT/HCPCS: 36415; 80053; 80061; 83036; 84153; 84154; 85025; 85651; 86140

== ENCOUNTER → 2024-12-19 13:15 | Outpatient (CLI) | payer MEDICARE, OTHER, SELFPAY ==
--- NOTE | 2024-12-19 13:18 | DI.CT.S_ITS ---
PROCEDURE: CT LUNG LOW DOSE SCREENING INDICATIONS: PERSONAL HX NICOTINE DEPENDENCE TECHNIQUE: Noncontrast 2.0-2.5 mm thick sections acquired from the pulmonary apices to the posterior costophrenic angles. 7 mm thick axial MIP, and 5 mm coronal and sagittal reformats were then acquired. For radiation dose reduction, the following was used: automated exposure control, adjustment of mA and/or kV according to patient size. COMPARISON: [facility], CT, CT ANGIO CHEST PE PROTOCOL, 09/26/2021, 13:35. FINDINGS: Image quality: Diagnostic. Lower Neck: No enlarged lymph nodes. Thyroid: No thyroid nodules which require sonographic follow up, per consensus guidelines. Axillae: No enlarged lymph nodes. Chest Wall: Unremarkable. Bones: Old healed right posterior rib fractures. No suspicious osseous lesion. Lungs and Pleura: No pneumothorax or pleural effusions. Mild centrilobular emphysema. A few scattered pulmonary micro nodules are seen in the right lung measuring 3 mm or less. No suspicious pulmonary nodule. No acute consolidation. Heart: Heart size is normal. No pericardial effusion. Thoracic Vessels: The aorta and pulmonary arteries demonstrate normal size. Mediastinum and Jazmine: No enlarged lymph nodes. Esophagus: No wall thickening. No hiatal hernia. Upper Abdomen: Visualized upper abdomen solid organs and bowel loops appear normal. IMPRESSION: No suspicious pulmonary nodules. LUNG-RADS 2; continued annual screening, if eligible. Clinically Significant Non-pulmonary Findings: None. Approved by: Ortega Espinoza M.D. on 12/19/2024 at 13:47
== END ==
PROVIDERS: PCP Student in an Organized Health Care Education/Training Program; Referring Provider Student in an Organized Health Care Education/Training Program; Visit Provider Student in an Organized Health Care Education/Training Program
DX: E83.52 Hypercalcemia (principal); Z12.2 Encounter for screening for malignant neoplasm of respiratory organs; Z87.891 Personal history of nicotine dependence; I74.2 Embolism and thrombosis of arteries of the upper extremities; I74.3 Embolism and thrombosis of arteries of the lower extremities; E67.3 Hypervitaminosis D; J43.2 Centrilobular emphysema
CPT/HCPCS: 71271

== ENCOUNTER → 2024-12-19 13:48 | Outpatient (CLI) | payer OTHER, SELFPAY ==
--- NOTE | 2024-12-19 13:49 | DI.CT.S_ITS ---
PROCEDURE: CT SOFT TISSUE NECK WO/W CON INDICATIONS: HYPERPARATHYROIDISM TECHNIQUE: Before and after the administration of intravenous contrast, 2.0 mm axial sections acquired through the neck and down to the maximo. Additional 2.0 mm coronal and sagittal reformats were generated of the contrast enhanced images. For radiation dose reduction, the following was used: automated exposure control. COMPARISON: [facility], US, US THYROID, 07/24/2024, 9:21. [facility], CT, CT LUNG LOW DOSE SCREENING, 12/19/2024, 13:26. FINDINGS: Image quality: Excellent. Parathyroid: Scrutiny is given to the parotid glands. No enlarged parotid glands can be seen. Thyroid: Within normal limits. Lymph nodes: No enlarged lymph nodes seen throughout the neck. Vessels: Visualized vasculature appears patent. Neck spaces: The oropharynx, nasopharynx, and pharynx demonstrate no mucosal lesions. The vocal cords, false vocal cords, pyriform sinuses, epiglottis, vallecula, and tongue base all appear normal. Extramucosal spaces appear unremarkable. Glands: The parotid and submandibular glands appear normal. Miscellaneous: Visualized lungs appear clear. Superficial soft tissues appear normal. There is a nonenhancing superficial skin lesion seen overlying the suprasternal notch, as on series 4, image 55, measuring 12 mm, which is attributed to a sebaceous cyst. Bones: No suspicious bony lesions. Visualized sinuses and mastoids appear unremarkable. Focal C6-C7 degenerative change is seen. IMPRESSION: No findings of parathyroid adenoma. Dictated by: Alan Russ M.D. on 12/19/2024 at 16:09 Approved by: Alan Russ M.D. on 12/19/2024 at 16:12
== END ==
PROVIDERS: PCP Student in an Organized Health Care Education/Training Program; Referring Provider Nurse Practitioner Family; Visit Provider Nurse Practitioner Family
DX: Z01.89 Encounter for other specified special examinations (principal); E21.3 Hyperparathyroidism, unspecified
CPT/HCPCS: 70492; Q9967

== ENCOUNTER → 2025-01-11 06:38 | Outpatient (CLI) | payer MEDICARE, OTHER, SELFPAY ==
--- NOTE | 2025-01-11 06:40 | DI.ECHO.S_ITS ---
[facility] : : [address] : : [place] : : [id number] : : Phone: [phone] Echocardiogram Report + + :Name: ANABEL RUST Study Date: 01/11/2025 Height: 75 in : :Hospital ReadingLocation: Weight: 260 lb : : Gender: Male BSA: 2.5 m2 : :: 1950 Age: 74 yrs BP: 128/71 mmHg: :Reason For Study: EMBOLISM AND THROMBOSIS, HYPERCALCEMIA : :Ordering Physician: AMANDA BOSS Performed By: Vinod Romero : :Referring: UNSPECIFIED : + + Interpretation Summary 1. The left ventricular contractility is normal. Estimated ejection fraction is greater than 60% with no segmental wall motion abnormalities. No LVH. Age- appropriate diastolic function. 2. The right ventricular contractility is normal. 3. Mild right atrial enlargement. Moderate right ventricular enlargement. The left atrium left ventricle are of normal size. 4. No significant valvular abnormalities. 5. No obvious intracardiac shunts. 6. No obvious intracardiac masses nor thrombi. 7. No hemodynamically significant pericardial effusion. Conclusion: Normal biventricular function with no significant valvular abnormalities. Mild right-sided enlargement. When compared with previous echocardiogram, no significant changes have occurred. Procedure: A two-dimensional transthoracic echocardiogram with color flow and Doppler was performed. The study quality was technically good. Comparison is made with the echocardiogram of 09/02/2020. The patient was in normal sinus rhythm during the exam. Left Ventricle: The left ventricle is normal in size. There is normal left ventricular wall thickness. There is no ventricular septal defect visualized. The ejection fraction is estimated to be 60-65%. There are no focal wall motion abnormalities. Diastolic parameters suggest a relaxation abnormality of the left ventricle, consistent with probable normal filling pressures. Right Ventricle: The right ventricle is moderately dilated. The right ventricular systolic function is normal. Atria: The left atrial size is normal. The right atrium is mildly dilated. There is no Doppler evidence for an interatrial shunt. Mitral Valve: There is mild mitral annular calcification. The mitral valve leaflets are slightly calcified. There is trace mitral regurgitation. Aortic Valve: The aortic valve is trileaflet. The aortic valve is mildly calcified. The aortic valve opens well. No aortic regurgitation is present. Tricuspid Valve: The tricuspid valve leaflets are thin and pliable. There is trace tricuspid regurgitation. Pulmonic Valve: The pulmonic valve is not well seen, but is grossly normal. There is no pulmonic valvular regurgitation. Great Vessels: The aortic root is normal size. The ascending aorta is at the upper limits of normal in size. The pulmonary artery is normal size. The inferior vena cava was not visualized. Pericardium/ Pleura There is no pericardial effusion. MMode/2D Measurements & Calculations LVIDd: 5.7 cm LVOT diam: 2.3 cm LVIDs: 3.5 cm Ao root diam: 3.7 cm FS: 38.1 % asc Aorta Diam: 3.7 cm EPSS: 0.72 cm IVSd: 0.98 cm LVPWd: 0.98 cm LV pena. diameter/BSA (cm/m^2): 2.3 LV sys. diameter/BSA (cm/m^2): 1.4 LA A2 area: 20.3 cm2 RA long axis: 5.7 cm LA A4 area: 26.8 cm2 RA area: 19.5 cm2 LA length (vol): 6.7 cm RA vol: 56.1 ml LA vol: 68.8 ml RA : 22.9 ml/m2 LA vol index: 28.1 ml/m2 RVD1 (basal): 4.8 cm RVD2 (mid): 4.1 cm TAPSE: 3.3 cm Doppler Measurements & Calculations Ao V2 max: 137.9 cm/sec LVOT Max David: 131.2 cm/sec Ao V2 mean: 102.8 cm/sec LV V1 max P.9 mmHg Ao max P.6 mmHg LV V1 VTI: 34.5 cm Ao mean P.7 mmHg CARLOS(I,D): 4.5 cm2 Ao V2 VTI: 32.9 cm CARLOS(V,D): 4.1 cm2 sev ratio: 1.0 CARLOS indexed to BSA (cm^2/m^2): 1.8 MV E max david: 84.8 cm/sec TR max david: 315.8 cm/sec MV A max david: 106.0 cm/sec TR max P.9 mmHg MV E/A: 0.80 PA V2 max: 93.6 cm/sec Med Peak E' David: 6.6 cm/sec PA V2 mean: 61.2 cm/sec E/E' med: 12.8 PA mean P.7 mmHg Lat Peak E' David: 9.0 cm/sec PA pr(Accel): 24.2 mmHg E/E' lat: 9.4 E/e' average: 11.1 MV dec time: 0.24 sec SV(LVOT): 147.1 ml Reading Physician:ANT
== END ==
PROVIDERS: PCP Student in an Organized Health Care Education/Training Program; Referring Provider Student in an Organized Health Care Education/Training Program; Visit Provider Student in an Organized Health Care Education/Training Program
DX: I34.81 Nonrheumatic mitral (valve) annulus calcification (principal); I51.7 Cardiomegaly; I70.0 Atherosclerosis of aorta; E83.52 Hypercalcemia; I74.2 Embolism and thrombosis of arteries of the upper extremities; I74.3 Embolism and thrombosis of arteries of the lower extremities; E67.3 Hypervitaminosis D; Z87.891 Personal history of nicotine dependence
CPT/HCPCS: 93306